=== PATIENT | male | born 1980 | race Caucasian/White ===

== ENCOUNTER → 2023-10-18 06:45 | Outpatient (REF) | payer OTHER, SELFPAY | LOC: MRI 3T 06:45 | PROVIDERS: ATTENDING PHYSICIAN Physical Medicine & Rehabilitation; FAMILY PHYSICIAN Family Medicine | DX: M23.91 Unspecified internal derangement of right knee (principal) | CPT/HCPCS: 73721 ==

== ENCOUNTER 2024-08-02 22:08 | Emergency (ER) | payer OTHER, SELFPAY ==
[2024-08-02 22:10] VITALS: BP 139/90
--- NOTE | 2024-08-02 22:53 | ED.GENMED ---
History of Present Illness
General
Chief Complaint: Dental Problem
Time Seen by Provider: 08/02/24 22:23
History of Present Illness
History of Present Illness:
44-year-old male presents for evaluation of right upper dental pain. Had a crown placed due to a cavity recently, states pain has been persistent since then. Improved after ibuprofen this evening. No fevers or chills
Review of Systems
Review of Systems
Allergies reviewed?: Yes
All Other Systems: ROS reviewed and negative except as documented in HPI and ROS
Phy Exam
Physical Exam
Physical Exam:
GEN: Well appearing, NAD, WDWN
HEENT: Oral mucosa moist, no scleral icterus; no gingival swelling or hyperemia in the upper gingiva, crown in place
Cardiac: Regular rate
Lung: No respiratory distress, no tachypnea
MSK: No gross deformity or injuries
Skin: Good color, no pallor or jaundice, no rashes
Neuro: AO x3, moves all extremities freely
Psych: Calm, cooperative
Course
Orders/Labs/Results
Orders:
Orders
08/02/24 22:56
Tramadol HCl [Ultram] 50 mg PO NOW STA
Vital Signs
Initial and Last Documented VS:
Initial Vital Signs
Temp Pulse Resp BP Pulse Ox
97.6 F 69 18 139/90 100
08/02/24 22:10 08/02/24 22:10 08/02/24 22:10 08/02/24 22:10 08/02/24 22:10
Last Documented Vital Signs
Temp Pulse Resp BP Pulse Ox
97.6 F 69 18 139/90 100
08/02/24 22:10 08/02/24 22:10 08/02/24 22:10 08/02/24 22:10 08/02/24 22:10
MDM/Problems Addressed
MDM/Problems Addressed:
No evidence of active infection however given pain after interventional dental procedure will prophylax with antibiotics and provide analgesics, outpatient dental follow-up in 9 days previously scheduled by the patient
*Critical Care Note
Total Time (30-74mins, 75-104mins- exclusive of procedures): Not Applicable
ED Attending Note
-
Portions of this chart may have been created with voice recognition software.� Occasional wrong word or��sound alike� substitutions may have occurred due to the inherent limitations of voice recognition software.
Discharge Plan
Departure
Patient Disposition: Home (Routine Discharge)
Date of Disposition: 08/02/24
Time of Disposition: 22:53
Patient with high blood pressure during this ER visit?: No
Discharge Problem:
Pain, dental
Instructions: Dental Pain (DC)
Prescriptions:
New
amoxicillin 500 mg tablet
500 mg PO Q8H 5 Days Qty: 15 0RF
tramadol 50 mg tablet
50 mg PO Q8H PRN (Reason: Pain) Qty: 8 0RF
Interventions
Interventions:
*Risk Screen - Suicide Last Done: 08/02/24 22:10
*General Assessment Last Done: 08/02/24 22:10
*Neglect/Abuse Screening Last Done: 08/02/24 22:10
*ED- Fall Risk Assessment Last Done: 08/02/24 23:02
*ED COVID-19 Vaccine History Last Done: 08/02/24 23:02
*Nursing Disposition Last Done: 08/02/24 23:05
Discharge Date and Time
Discharge Date/Time: 08/02/24 23:08
Print Language: [id number]
[2024-08-02] MEDS: ULTRAM 50 MG PO (23:00)
[2024-08-02 23:01] VITALS: BMI 25.0
== END 2024-08-02 23:08 | disposition home or self-care (01) ==
LOC: EMR 22:08
PROVIDERS: EMERGENCY PHYSICIAN Emergency Medicine; FAMILY PHYSICIAN Family Medicine
DX: K08.89 Other specified disorders of teeth and supporting structures (principal); Z98.811 Dental restoration status
CPT/HCPCS: 99283